=== PATIENT | female | born 1970 | race African-American/Black ===

== ENCOUNTER 2017-01-05 02:15 | Emergency (ER) | payer BC ==
--- NOTE | ~2017-01-05 | CR107 ---
[facility] A Service of [facility] & [facility] RADIOLOGY TEXT RESULTS PATIENT: MARIA G FARAH LOCATION: [facility] : 70 UNIT #: [id number] AGE: [address]: Duane Resendiz MD SEX: F ORDER DR: [id number] [facility] [address] [place], [place] [address] [id number] E MR#: [id number] Acc #: [id number] NAME: MARIA G FARAH : 1970 SEX: F STUDY DATE/TIME: 01/05/2017 01:24 UNIT: [facility] ROOM: STUDY DESCRIPTION: CR Femur 2 Views Rt Attending Physician: Rohit Resendiz M.D. Ordering Physician: Ed Jaylen Novak M.D. Primary Care Physician: Kurtis De M.D. MEDICAL IMAGING REPORT This report is preliminary unless electronic signature is present EXAM Right femur 01/05/2017 at 0124 INDICATION Pain in the hip and femur after climbing a ladder today. No trauma. FINDINGS 6 views of the femur were obtained in addition to an AP pelvis. Comparison made with pelvis radiograph from 12/02/2014. No fracture or malalignment is seen. IMPRESSION Negative pelvis and right femur. Dictated by... Wilfrid Guadarrama Jr., M.D. THIS IS AN ELECTRONICALLY VERIFIED REPORT Wilfrid Guadarrama Jr., M.D. at 01/05/2017 10:02 PM FRANCIA/leyda TD: 01/05/2017 08:05 JOB #: [id number] MEDICAL IMAGING REPORT COPY
[~2017-01-05 02:15] MED LIST: NEXIUM
== END 2017-01-05 02:38 | disposition home or self-care (01) ==
LOC: CED 02:15
DX: S76.111A Strain of right quadriceps muscle, fascia and tendon, initial encounter (principal); I10 Essential (primary) hypertension; X58.XXXA Exposure to other specified factors, initial encounter; Y93.39 Activity, other involving climbing, rappelling and jumping off; Y92.9 Unspecified place or not applicable
CPT/HCPCS: 29505; 73552; 99283